=== PATIENT | female | born 1995 ===

== ENCOUNTER 2017-06-26 21:43 | Emergency (ER) | payer SELFPAY ==
[2017-06-26 22:09] VITALS: BP 114/73
[2017-06-26 23:03] LABS: HCG Qualitative,Urine Negative (Negative)
[2017-06-26 23:06] LABS: Bilirubin,Urine NEG (Negative); Blood,Urine NEG (Negative); Color,Urine Yellow (Yellow); Nitrite,Urine NEG (Negative); Protein,Urine <15 mg/dL mg/dL (Negative)
--- NOTE | 2017-06-27 04:04 | Emergency Department Report ---
ED Female HPI - General Chief complaint: Urogenital-Female Stated complaint: VAG D/C WITH ODOR Time Seen by Provider: 06/27/17 03:10 Source: patient Mode of arrival: Ambulatory Limitations: No Limitations - History of Present Illness Initial comments: Patient is a 22-year-old female who presents to ED complaining of shave in her vaginal area of the month ago and since then she has noticed some itching, raised lesions on the top part of her vaginal area. Patient also states that she's had eczema in her armpits for about a year now. Patient also states she has been having some vaginal discharge with a folder for the past week. Patient states this intercourse was in April 2017. Patient denies vaginal itching, dysuria, frequency vaginal bleeding MD Complaint: vaginal discharge Improves with: none Worsens with: none Are you Now?: No Associated Symptoms: vaginal discharge - Related Data Previous Rx's Medication Instructions Recorded Last Taken Type Hydroxyzine HCl 25 mg PO QHS #20 tablet 06/27/17 Unknown Rx Triamcinolone Acetonide 1 applic TP BID #120 ml 06/27/17 Unknown Rx [Triamcinolone 0.1% LOTION] metroNIDAZOLE [Metronidazole] 500 mg PO BID #12 tablet 06/27/17 Unknown Rx predniSONE [Deltasone] 10 mg PO QDAY #5 tab 06/27/17 Unknown Rx Allergies Allergy/AdvReac Type Severity Reaction Status Date / Time No Known Allergies Allergy Unverified 06/26/17 22:04 ED Review of Systems ROS: Stated complaint: VAG D/C WITH ODOR Other details as noted in HPI Constitutional: denies: chills, fever Eyes: denies: eye pain, eye discharge, vision change ENT: denies: ear pain, throat pain Respiratory: denies: cough, shortness of breath, wheezing Cardiovascular: denies: chest pain, palpitations Endocrine: no symptoms reported Gastrointestinal: denies: abdominal pain, nausea, diarrhea Genitourinary: discharge. denies: urgency, dysuria, frequency, hematuria Musculoskeletal: denies: back pain, joint swelling, arthralgia Skin: rash, pruritus (armpits and mons pubis). denies: lesions Neurological: denies: headache, weakness, numbness, paresthesias, confusion Psychiatric: denies: anxiety, depression Hematological/Lymphatic: denies: easy bleeding, easy bruising ED Past Medical Hx - Past Medical History Previous Medical History?: No - Surgical History Past Surgical History?: No - Social History Smoking Status: Never Smoker Substance Use Type: Alcohol - Medications Home Medications: Home Medications Medication Instructions Recorded Confirmed Last Taken Type Hydroxyzine HCl 25 mg PO QHS #20 tablet 06/27/17 Unknown Rx Triamcinolone Acetonide 1 applic TP BID #120 ml 06/27/17 Unknown Rx [Triamcinolone 0.1% LOTION] metroNIDAZOLE [Metronidazole] 500 mg PO BID #12 tablet 06/27/17 Unknown Rx predniSONE [Deltasone] 10 mg PO QDAY #5 tab 06/27/17 Unknown Rx ED Physical Exam - General Limitations: No Limitations General appearance: alert, in no apparent distress - Head Head exam: Present: atraumatic, normocephalic - Eye Eye exam: Present: normal appearance, PERRL - ENT ENT exam: Present: mucous membranes moist - Neck Neck exam: Present: normal inspection - Respiratory Respiratory exam: Present: normal lung sounds bilaterally. Absent: respiratory distress - Cardiovascular Cardiovascular Exam: Present: regular rate, normal rhythm. Absent: systolic murmur, diastolic murmur, rubs, gallop - GI/Abdominal GI/Abdominal exam: Present: soft, normal bowel sounds - External exam: Present: lesions, other (hypopigmented raised scar like lesions) . Absent: erythema, swelling Speculum exam: Present: vaginal discharge, cervical discharge. Absent: vaginal bleeding, foreign body, laceration Bi-manual exam: Present: normal bi-manual exam. Absent: cervical motion tendernes, adnexal tenderness, uterine enlargement, uterine tenderness - Extremities Exam Extremities exam: Present: normal inspection - Back Exam Back exam: Present: normal inspection - Neurological Exam Neurological exam: Present: alert, oriented X3, normal gait - Psychiatric Psychiatric exam: Present: normal affect, normal mood - Skin Skin exam: Present: warm, dry, intact, normal color. Absent: rash ED Course Vital Signs 06/26/17 22:05 Temperature 98.5 F Pulse Rate 68 Respiratory 20 Rate Blood Pressure 114/73 O2 Sat by Pulse 99 Oximetry ED Medical Decision Making - Medical Decision Making 22-year-old female presents with bacterial vaginosis ED course: Wet prep, Chlamydia and gonorrhea cultures sent. Urinalysis shows mild elevated WBCs and moderate leukocyte esterase I discussed his findings with the patient. I discussed with the patient will start first dose of metronidazole ED. I discussed with the patient to use topical cream for her eczema flareup. I discussed the patient she can also use some bacitracin ointment. Vital signs are normal patient is in acute distress I discussed the patient obviously referred for dermatology is to follow for further management. Discussed with patient follow-up with primary care physician. Critical care attestation.: If time is entered above; I have spent that time in minutes in the direct care of this critically ill patient, excluding procedure time. ED Disposition Clinical Impression: Bacterial vaginitis Eczematous dermatitis Qualifiers: Eczema type: unspecified Qualified Code(s): L30.9 - Dermatitis, unspecified Disposition: - TO HOME OR SELFCARE Is pt being admited?: No Does the pt Need Aspirin: No Condition: Stable Instructions: Bacterial Vaginosis (ED), Eczema (ED) Additional Instructions: Make sure to follow up with the primary care physician as discussed. Take all your medications as you've been prescribed. If you have any worsening symptoms or develop new symptoms please return to ED immediately. Prescriptions: Hydroxyzine HCl 25 mg PO QHS #20 tablet metroNIDAZOLE [Metronidazole] 500 mg PO BID #12 tablet predniSONE [Deltasone] 10 mg PO QDAY #5 tab Triamcinolone Acetonide [Triamcinolone 0.1% LOTION] 1 applic TP BID #120 ml Referrals: PRIMARY CAREMD [Primary Care Provider] - 3-5 Days NAYA RUSS MD [Staff Physician] - 3-5 Days [facility] [Outside] - 3-5 Days [facility] [Outside] - 3-5 Days [facility] [Outside] - 3-5 Days Forms: STI Treatment and Prevention, Work/School Release Form(ED) Time of Disposition: 05:11
[2017-06-27] MEDS ORDERED: FLAGYL PO ONE (05:09)
== END 2017-06-27 06:05 | disposition home or self-care (01) ==
LOC: ED 21:43
DX: N76.0 Acute vaginitis (principal)
CPT/HCPCS: 81001; 81025; 87210; 87591; 99283